=== PATIENT | female | born 1985 | race Two or more races ===

== ENCOUNTER 2017-09-15 10:45 | Inpatient (IN) | payer OTHER ==
[~2017-09-15] VITALS: Ht 165.1 cm; Wt 88.5 kg
== END 2017-09-27 08:48 | disposition home or self-care (01) | DRG 741 ==
LOC: OB/GYN 09-23 05:40 → O/R 09-23 05:40 → OB/GYN 09-23 11:58 → O/R 09-23 13:30 → OB/GYN 09-27 08:48
PROVIDERS: Obstetrics & Gynecology Gynecologic Oncology
PROC: 0UB10ZZ Excision of Left Ovary, Open Approach (ICD-10-PCS; 2017-09-23)
PROC: 07BC0ZX Excision of Pelvis Lymphatic, Open Approach, Diagnostic (ICD-10-PCS; 2017-09-23)
PROC: 0UVC0ZZ Restriction of Cervix, Open Approach (ICD-10-PCS; 2017-09-23)
PROC: 0UTC0ZZ Resection of Cervix, Open Approach (ICD-10-PCS; principal; 2017-09-23 13:30)
DX: C53.0 Malignant neoplasm of endocervix (principal)

== ENCOUNTER → 2018-12-27 | Outpatient (CLI) | payer OTHER | END | disposition home or self-care (01) | LOC: NUCLEAR 09:37 | DX: C53.0 Malignant neoplasm of endocervix (principal) | CPT/HCPCS: 78815; A9552 ==

== ENCOUNTER 2020-02-29 08:33 | Outpatient (CLI) | payer OTHER | END 2020-02-29 08:55 | disposition home or self-care (01) | LOC: NUCLEAR 08:33 | PROVIDERS: ATTEND Obstetrics & Gynecology Gynecologic Oncology | DX: C53.1 Malignant neoplasm of exocervix (principal) | CPT/HCPCS: 78815; A9552 ==

== ENCOUNTER 2021-09-08 08:07 | Outpatient (CLI) | payer OTHER | END 2021-09-08 08:11 | disposition home or self-care (01) | LOC: SONOGRAMA 08:07 | PROVIDERS: ATTEND Pathology Anatomic Pathology & Clinical Pathology | DX: E07.89 Other specified disorders of thyroid (principal) ==

== ENCOUNTER 2025-06-28 06:00 | Day surgery (SDC) | payer OTHER ==
[2025-06-21 09:17] LABS: BASO % 0.4 % (0.1-1.2); EOS # 0.14 (0.04-0.54); EOS % 1.9 % (0.7-7.0); LYMPH # 1.64 (1.18-3.74); LYMPH % 22.8 % (19.3-53.1); MEAN PLATELET VOLUME 9.80 fl (9.4-12.4); MONO # 0.38 (0.24-0.82); MONO % 5.3 % (4.7-12.5); NEUT # 4.96 (1.56-6.13); NEUT % 69.2 % (34.0-71.1); RED CELL DISTRIBUTION WIDTH 13.3 % (11.6-14.4)
[2025-06-21 09:20] LABS: URINE APPEARANCE Clear; URINE BILIRRUBIN Negative (NEGATIVE); URINE BLOOD Small; URINE COLOR Yellow; URINE KETONE Negative (NEGATIVE); URINE LEUKOCYTE Negative; URINE NITRATE Negative; URINE PROTEIN Negative (NEGATIVE); URINE UROBILINOGEN 0.2 E.U./dl
[2025-06-21 09:25] LABS: URINE BACTERIA 227.8 uL (0.0-1933); URINE EPITHELIAL CELLS 1.8 uL (0.0-38.8); URINE RBC 4.6 uL (0.0-20.8)
[2025-06-21 09:26] VITALS: BP 112/71
[2025-06-21 09:36] LABS: COVID-19 AG NEGATIVE (NEGATIVE)
[2025-06-21 09:42] LABS: INR 1.01
[2025-06-21 09:44] LABS: URINE CAST 0.00 uL (0.0-1.40); URINE GLUCOSE >=1000 MG/DL (NEGATIVE); URINE WBC 1.5 uL (0.0-23.2)
[2025-06-21 10:08] LABS: ALT/SGPT 18.0 U/L (12-78); AST/SGOT 9.0 U/L (15-37); BILIRUBIN TOTAL 0.81 mg/dL (0.3-1.2); BUN CREA RATIO 24.0 (7.0-25.0); CREATININE SERUM 0.8 mg/dL (0.55-1.02); GFR 78.66; GLOBULINA 3.8 G/DL (2.4-3.5); GLUCOSE FASTING 126.0 mg/dL (65-100); OSMOLALITY SERUM 281.0 MOSM/KG (275-295)
[~2025-06-28] VITALS: Ht 165.1 cm; Wt 83.9 kg
[~2025-06-28 06:00] MED LIST: ATACAND4 MG PO; JARDIANCE10 MG; LABETALOL HCL100 MG PO; MAGNESIUM250 MG PO; PENTOXIFYLLINE400 MG PO; PRAVASTATIN SOD40 MG PO
[2025-06-28] MEDS ORDERED: CEFAZOLIN SODIUM 1,000 MG VIAL ONE (07:04)
[2025-06-28] MEDS ORDERED: METRONIDAZOLE/SODIUM CHLORIDE 500 MG/100 ML PIGGYBACK IV ONE (07:04)
[2025-06-28] MEDS ORDERED: POVIDONE-IODINE 118 ML BOTT TOP ONE (07:29)
[2025-06-28] MEDS ORDERED: CHLORHEXIDINE GLUCONATE 120 ML BOTTLE TOP ONE (07:29)
[2025-06-28] MEDS ORDERED: THROMBIN,HU/FIBRINOGEN/CALCIUM 4 ML SYRINGE TOP ONE (07:55)
[2025-06-28] MEDS ORDERED: SUGAMMADEX SODIUM 200 MG/2 ML VIAL IV ONE (07:55)
[2025-06-28] MEDS ORDERED: VISTASEAL DUAL APPICATOR 1 EACH APPL TOP ONE (07:55)
[2025-06-28] MEDS ORDERED: KETOROLAC TROMETHAMINE 30 MG VIAL IV STA (09:10)
== END 2025-06-28 11:35 | disposition home or self-care (01) ==
LOC: CIR.AMB 06:00
PROVIDERS: ATTEND Obstetrics & Gynecology Gynecologic Oncology
DX: N83.11 Corpus luteum cyst of right ovary (principal); N83.291 Other ovarian cyst, right side; N80.121 Deep endometriosis of right ovary; N88.8 Other specified noninflammatory disorders of cervix uteri; Z88.2 Allergy status to sulfonamides; C53.1 Malignant neoplasm of exocervix
CPT/HCPCS: 58662; S2900